=== PATIENT | male | born 1965 | race Caucasian/White ===

== ENCOUNTER 2020-03-16 19:05 | Emergency (ER) | payer SELFPAY ==
[~2020-03-16] VITALS: Ht 167.6 cm; Wt 72.7 kg
[2020-03-16 19:21] VITALS: TEMP 98.2
[2020-03-16] MEDS ORDERED: LAMICTAL 25MG T25 MG PO (20:30)
[2020-03-16 21:10] VITALS: BP 122/79; PULSE 72
== END 2020-03-16 21:10 | disposition home or self-care (01) ==
LOC: COL.ER 19:05
DX: G50.0 Trigeminal neuralgia (principal)